=== PATIENT | male | born 1965 | race Caucasian/White ===

== ENCOUNTER 2021-09-19 10:45 | Inpatient (IN) | payer MEDICARE ==
[~2021-09-19] VITALS: Ht 182.9 cm; Wt 79.8 kg
[2021-09-19] MEDS ORDERED: ACETAMINOPHEN 325 MG TABLET PO PRN (12:00)
[2021-09-19] MEDS ORDERED: clonazePAM 0.5 MG TABLET PO PRN (12:00)
[2021-09-19] MEDS ORDERED: MAG HYDROX/AL HYDROX/SIMETH 30 ML UDC PO PRN (12:00)
[2021-09-19] MEDS ORDERED: MAGNESIUM HYDROXIDE 30 ML UDC PO PRN (12:00)
[2021-09-19] MEDS ORDERED: BLOOD SUGAR DIAGNOSTIC 1 EACH STRIP IN ONE (12:00)
--- NOTE | 2021-09-19 12:00 | NUR ---
RN-ADMISSION NOTES ADMITTED 55 Y.O MALE PATIENT FROM [facility]. PATIENT ON 5150 HOLD FOR DTS AND GD. PER HOLD PATIENT IS HEARING VOICES,REFUSING TO EAT AND DRINKS,HE BELIEVES IT IS POISON. PATIENT BECAME AGGRESSIVE TO HIS MOTHER. UPON FACE TO FACE ASSESSMENT PATIENT DID NOT WANT TO DISCUSS OR ANSWER THE COMPUTER ENGINEER QUESTIONS. HE IS AGITATED AND ANGRY, RUMBLING TO SELF.PATIENT IS UNCOOPERATIVE DURING THE ADMISSION PROCESS. REFUSED FULL BODY ASSESSMENT AND REUSED TO SIGN ADMISSION PAPERS. PATIENT ALSO REFUSED ACCU CHECK AND MRSA SWAB. PATIENT IS UNDER THE CARE OF DR. LAKHANI( PSYCHIATRIST) DR. SANCHEZ (CRAB BUTCHER) BOTH MD WAS MADE AWARE OF PT. ADMISSION.PATIENT'S BRANNON BOOKLET AND MEDICATION BOOKLET WAS GIVEN TO THE PATIENT.PAT'S MOTHER QUITA PERRY WAS MADE AWARE OF THE ADMISSION. WILL CONT. MONITORING FOR SAFETY AND BEHAVIOR.
--- NOTE | 2021-09-19 13:17 | NUR ---
RN-CO: DR Rivera was notified and gave admitting orders. He ordered Klonopin 1 mg Q 4 hours PRN for agitation.
--- NOTE | 2021-09-19 13:40 | NUR ---
KRIS Initial Discharge Plan: Patient currently resides at [address] [place] [address]; ([phone]). Pt lives with mother Carol ([phone]). Pt would want to return back home upon discharge. KRIS will work with the MD, family, and treatment team to coordinate appropriate treatment.
--- NOTE | 2021-09-19 13:40 | NUR ---
Clinical Social Work Note: Pt placed on a 5150 hold for GD and danger to others. Pt brought to the hospital due to having hallucinations at home and pt was not taking his medications at home. Pt was losing weight at home and was not eating. Patient currently resides at [address] [place] [address]; ([phone]). Pt lives with mother Carol ([phone]). Pt would want to return back home upon discharge.
--- NOTE | 2021-09-19 13:41 | NUR ---
Social Work Note/Substance Abuse Intervention: Patient was provided with a brief substance abuse intervention and referred to [facility] ([phone]), [facility] ([phone]), and [facility] ([phone]) for smoking marijuana.
[2021-09-19] MEDS: clonazePAM 0.5 MG TABLET PO PRN ×2 (15:14→19:32)
--- NOTE | 2021-09-19 15:20 | NUR ---
RN-NOTES NOTED PATIENT IRRITABLE AND ANGRY,YELLING WHEN APPROACH BY THE STAFF. KLONOPIN 1MG P.O GIVEN PRN ORDER. WILL CONT. MONITORING FOR SAFETY AND BEHAVIOR.
--- NOTE | 2021-09-19 15:31 | NUR ---
Individual Counseling: SW met with pt. at bedside to conduct individual check in. However, pt. was asleep and not awakened via verbal cues. SW will invite pt. to next individual or group counseling session.
[2021-09-19 16:00] VITALS: BP 114/66
--- NOTE | 2021-09-19 16:06 | NUR ---
KRIS Family Contact: SW attempted to contact pt's mother Carol ([phone]) to discuss treatment/discharge planning. However, the number was disconnected. SW attempted to impersonator character to notify [facility] ([phone]) but was unavailable, SW, left a voicemail.
--- NOTE | 2021-09-19 16:20 | NUR ---
RN-NOTES PATIENT LYING IN BED SLEEPING EASILY AROUSED,NO ACUTE DISTRESS NOTED.
[2021-09-19] MEDS ORDERED: DEXTROSE 50%-WATER 50 ML DISP.SYRIN IV PRN (18:30)
[2021-09-19] MEDS ORDERED: INSULIN REGULAR, HUMAN 100 UNIT/ML 3 ML VIAL SQ PRN (18:30)
[2021-09-19] MEDS ORDERED: hydrALAZINE HCL 25 MG TABLET PO PRN (18:30)
--- NOTE | 2021-09-19 19:25 | NUR ---
RN-NOTES PATIENT SLEEPING WITH BREATHING EVEN AND NONLABORED EASILY AROUSED,GUARDED,EASILY IRRITABLE.ALL NEEDS ATTENDED AND ANTICIPATED. WILL CONT. MONITORING FOR SAFETY AND BEHAVIOR. WILL ENDORSE TO INCOMING NURSE FOR CONTINUITY OF CARE AND URINE COLLECTIONS.
[2021-09-19 20:00] VITALS: BP 125/68
--- NOTE | 2021-09-19 20:19 | NUR ---
RN OPENING NOTES: RECEIVED PATIENT AWAKE IN BED, BED IN LOW POSITION, PATIENT IS AMBULATORY, ABLE TO VERBALIZE NEEDS, ON ROOM AIR NO SOB WAS OBSERVED, PATIENT APPEARS COMBATIVE AND YELLING AT NURSES , KLONOPIN 1 MG PRN GIVEN ABLE TO TAKE IT, PATIENT WAS REDIRECTED BACK TO ROOM, KEPT CLEAN AND DRY ALL NEEDS MET WILL CONTINUE TO MONITOR.
[2021-09-19] MEDS: BLOOD SUGAR DIAGNOSTIC 1 EACH STRIP IN SCH (22:00)
--- NOTE | 2021-09-19 22:40 | NUR ---
RN NOTES: [id number]- NO INSULIN GIVEN, OUT OF PARAMETER
[2021-09-19] MEDS: TEMAZEPAM 7.5 MG CAPSULE PO PRN (22:59)
--- NOTE | 2021-09-20 06:38 | NUR ---
RN CLOSING NOTES; PATIENT SLEEP IN BED COMFORTABLY, BED IN LOW POSITION, ON ROOM AIR SATURATING WELL, NO SOB WAS OBSERVED, ON MEDICATION COMPLIANT, AMBULATORY WITH SUPERVISION, PATIENT WAS COMBATIVE, AGGRESSIVE BEHAVIOR AND NEEDS TO BE REDIRECTED BACK TO ROOM, PATIENT KEPT CLEAN AND DRY ALL NEEDS MET ENDORSE TO INCOMING SHIFT
[2021-09-20] MEDS: BLOOD SUGAR DIAGNOSTIC 1 EACH STRIP IN SCH (07:30)
--- NOTE | 2021-09-20 07:45 | NUR ---
Pt. refused for lab draw and refused for accu check. Pt. was irritable and mad.
--- NOTE | 2021-09-20 07:55 | NUR ---
Refused v/s in the morning. Irritable and mad.
[2021-09-20] MEDS: OLANZAPINE 2.5 MG TABLET PO SCH (09:19)
[2021-09-20] MEDS: DIVALPROEX SODIUM 125 MG CAP.SPRINK PO SCH ×2 (09:19→21:00)
--- NOTE | 2021-09-20 09:42 | NUR ---
Dr. Contreras in the unit and made aware that pt. refused lab draw and refused accu check and ordered to do accu check once a day in AM ac breakfast with mild regular insulin sliding scale
[2021-09-20] MEDS ORDERED: INSULIN REGULAR, HUMAN 100 UNIT/ML 3 ML VIAL SQ PRN (10:00)
[2021-09-20] MEDS ORDERED: DEXTROSE 50%-WATER 50 ML DISP.SYRIN IV PRN (10:00)
[2021-09-20] MEDS: clonazePAM 0.5 MG TABLET PO PRN (10:35)
--- NOTE | 2021-09-20 10:35 | NUR ---
Pt. is anxious, agitated, irritable in the hallway and prn of Klonopin given.. Will continue to monitor for safety. Addendum: 09/20/21 at 1044 by ROGERIO VAUGHN RN Pt. refused to take the Klonopin and said he doesn't need it and will continue to monitor.
--- NOTE | 2021-09-20 10:59 | NUR ---
KRIS Family Contact: SW attempted to contact patient's mother Carol ([phone]) who stated that pt lives at home and pt welcomed back home. She reported upon dc she will pick pt up.
--- NOTE | 2021-09-20 15:29 | NUR ---
Pt. refused lab draw again. Pt. is irritable and angry.
--- NOTE | 2021-09-20 19:55 | NUR ---
PATIENT REFUSED VITALS SIGNS DESPITE OF RISKS AND BENEFITS EXPLANATIONS. PATIENT IS UNCOOPERATIVE, UNPREDICTABLE BEHAVIOR, AGITATED AND DOES NOT WANT RIANNA BE BOTHERED.
--- NOTE | 2021-09-20 21:35 | NUR ---
GPS RN NOTE: MEDICATION REFUSAL PATIENT REFUSED DEPAKOTE X 3 ORDERED AT 2100 DESPITE OF RISKS AND BENEFITS EXPLANATIONS, PATIENT GOT AGITATED AND ASKED THE NURSE TO LEAVE HIS ROOM. PATIENT IS UNCOOPERATIVE AND NON COMPLAINT WITH MEDICATIONS AND CARE. WILL CONTINUE TO MONITOR FOR ANY CHANGES.
--- NOTE | 2021-09-20 21:40 | NUR ---
GPS RN NOTE DEPAKOTE WAS OPENED TO OFFER TO THE PATIENT BUT PATIENT KEPT REFUSING IT, DEPAKOTE WAS WASTED PER PROTOCOL.
[2021-09-21] MEDS: BLOOD SUGAR DIAGNOSTIC 1 EACH STRIP IN SCH (07:30)
[2021-09-21] MEDS: OLANZAPINE 2.5 MG TABLET PO SCH (09:00)
[2021-09-21] MEDS: DIVALPROEX SODIUM 125 MG CAP.SPRINK PO SCH ×2 (09:00→20:50)
--- NOTE | 2021-09-21 09:00 | NUR ---
GPS/RN RECEVEID PT RESTING IN TH BED NO ACUTE DISTRESS NOTED. REFUSED VS IN AM. REFUSED TO TAKE MEDICATIONS. AMBULATORY. ANGRY AND PARANOID. ALL NEEDS ATTENDED AND ANTICIPATED. WILL CONTINUE TO MONITOR Q15MIN FOR SAFETY AND BEHAVIOR.
--- NOTE | 2021-09-21 11:09 | NUR ---
GPS/RN MULTIPLE UNSUCCESSFUL ATTEMPTS WERE MADE TO MEDICATE PT FOR 0900.
--- NOTE | 2021-09-21 19:58 | NUR ---
RN-NOTES PATIENT RESTING IN HIS ROOM NO S/S OF ACUTE DISTRESS NOTED. EASILY AGITATED , UNCOOPERTIVE , UNPREDICTABLE ,PARANOID CONFUSED FORGETFUL ,DISHELVED, NEEDY, HYPERVERBAL, DEMANDING BEHAVIOR. FOCUS ON FOOD, COFFEE. ALL NEED ATTENDED AND ANTICIPATED. , ENCOURAGED TO VERBALIZED ANY FEELING OR CONCERN, WILL CONTINUE MONITORING Q15 FOR SAFETY AND BEHAVIOR.
[2021-09-21 20:00] VITALS: BP 107/68
--- NOTE | 2021-09-21 20:00 | NUR ---
RN NOTES: PT. REFUSED VITAL SIGNS, DESPITE EXPLAINING THE IMPORTANCE. PT. STRONGLY REFUSED,WILL CONTINUE TO MONITOR.
[2021-09-21] MEDS: clonazePAM 0.5 MG TABLET PO PRN (20:31)
--- NOTE | 2021-09-21 20:34 | NUR ---
RN NOTES : ANXIETY PT. C/O FEELING ANXIOUS , RESTLESS, SCRAMING YELLING PRN KLONOPIN 1 MG PO GIVEN , WILL CONTINUE TO MONITOR.
--- NOTE | 2021-09-21 20:51 | NUR ---
RN NOTES: PT. REFUSED 2100 SCHEDULE, PO DEPAKOTE 125MG, DESPITE EXPLAINING THE IMPORTANCE. PER PT. THAT,S NOT MY MEDICATIONS , I NEVER TAKE IT,WILL CONTINUE TO MONITOR.
[2021-09-22] MEDS: BLOOD SUGAR DIAGNOSTIC 1 EACH STRIP IN SCH (07:23)
[2021-09-22 08:00] VITALS: BP 115/71
[2021-09-22] MEDS: OLANZAPINE 2.5 MG TABLET PO SCH (08:10)
[2021-09-22] MEDS: DIVALPROEX SODIUM 125 MG CAP.SPRINK PO SCH ×2 (08:10→20:28)
--- NOTE | 2021-09-22 09:00 | NUR ---
GPS/RN RECEIVED PT RESTING IN TH BED NO ACUTE DISTRESS NOTED. REFUSED TO TAKE MEDICATIONS. AMBULATORY. ANGRY AND PARANOID. ALL NEEDS ATTENDED AND ANTICIPATED. WILL CONTINUE TO MONITOR Q15MIN FOR SAFETY AND BEHAVIOR.
[2021-09-22 16:00] VITALS: BP 110/64
[2021-09-22] MEDS: clonazePAM 0.5 MG TABLET PO PRN (19:32)
--- NOTE | 2021-09-22 19:32 | NUR ---
RN NOTES: ANXIETY PT. C/O FEELING ANXIOUS ,PACING IN HALLWAY RESTLESS, SCRAMING YELLING PRN KLONOPIN 1 MG PO GIVEN , WILL CONTINUE TO MONITOR.
[2021-09-22 20:15] VITALS: BP 108/64
--- NOTE | 2021-09-22 20:28 | NUR ---
RN NOTES: PT. REFUSED 2100 SCHEDULE, PO DEPAKOTE 125MG, DESPITE EXPLAINING THE IMPORTANCE. PER PT. THAT,S NOT MY MEDICATIONS , I NEVER TAKE IT, I JUST TOOK KLONOPIN ALREADY THAT"S ALL ,WILL CONTINUE TO MONITOR.
[2021-09-23] MEDS: clonazePAM 0.5 MG TABLET PO PRN ×2 (04:32→21:33)
--- NOTE | 2021-09-23 04:33 | NUR ---
RN NOTES: ANXIETY PT. C/O FEELING ANXIOUS ,PACING IN HALLWAY RESTLESS, SCRAMING YELLING PRN KLONOPIN 1 MG PO GIVEN , WILL CONTINUE TO MONITOR.
[2021-09-23] MEDS: BLOOD SUGAR DIAGNOSTIC 1 EACH STRIP IN SCH (07:30)
[2021-09-23 08:00] VITALS: BP 117/73
[2021-09-23] MEDS: DIVALPROEX SODIUM 125 MG CAP.SPRINK PO SCH ×2 (08:41→21:00)
[2021-09-23] MEDS: OLANZAPINE 2.5 MG TABLET PO SCH (08:41)
--- NOTE | 2021-09-23 09:00 | NUR ---
GPS/RN RECEIVED PT RESTING IN TH BED NO ACUTE DISTRESS NOTED. VSS. REFUSED TO TAKE MEDICATIONS OFFERED X3. AMBULATORY. ANGRY AND PARANOID. ALL NEEDS ATTENDED AND ANTICIPATED. WILL CONTINUE TO MONITOR Q15MIN FOR SAFETY AND BEHAVIOR.
[2021-09-23 16:00] VITALS: BP 102/64
--- NOTE | 2021-09-23 19:20 | NUR ---
GPS RN NOTES RECEIVED PATIENT IN BED AWAKE ALERT AND ORIENTED X1, NO S/SX OF ACUTE DISTRESS NOTED. PATIENT REMAINS IRRITABLE, ANGRY AFFECT, SUSPICIOUS, UNPREDICTABLE, DISORGANIZED, UNCOOPERATIVE. VERBALIZATION OF FEELINGS ENCOURAGED. SAFETY PRECAUTIONS IN PLACE. WILL CONTINUE TO MONITOR Q15MIN ROUNDS FOR SAFETY AND BEHAVIOR.
--- NOTE | 2021-09-23 20:00 | NUR ---
GPS RN NOTES PATIENT REFUSED WEEKLY SKIN ASSESSMENT.
[2021-09-23 20:10] VITALS: BP 112/75
--- NOTE | 2021-09-23 21:28 | NUR ---
GPS RN NOTES: MEDICATION REFUSAL PATIENT REFUSED SCHEDULED DEPAKOTE. OFFERED X3. DESPITE OF RISK/BENEFITS EXPLANATION. PATIENT BECAME AGITATED. PATIENT STATED NO, "I DON'T TAKE DEPAKOTE, I DON'T HAVE SEIZURE".
[2021-09-24] MEDS: BLOOD SUGAR DIAGNOSTIC 1 EACH STRIP IN SCH (07:46)
[2021-09-24 08:00] VITALS: BP 114/67
[2021-09-24] MEDS: DIVALPROEX SODIUM 125 MG CAP.SPRINK PO SCH ×3 (08:35→20:52)
[2021-09-24] MEDS: OLANZAPINE 2.5 MG TABLET PO SCH ×2 (08:35→08:38)
--- NOTE | 2021-09-24 09:00 | NUR ---
RN NOTE- RECEIVED PATIENT IN BED AWAKE ALERT AND ORIENTED X1, NO S/SX OF ACUTE DISTRESS NOTED. PATIENT REMAINS IRRITABLE, ANGRY AFFECT, SUSPICIOUS, UNPREDICTABLE, DISORGANIZED, UNCOOPERATIVE. VERBALIZATION OF FEELINGS ENCOURAGED. SAFETY PRECAUTIONS IN PLACE. WILL CONTINUE TO MONITOR Q15MIN ROUNDS FOR SAFETY AND BEHAVIOR.
--- NOTE | 2021-09-24 21:35 | NUR ---
RN GPS NOTE: PATIENT WAS TALKING NON-TANGENTIAL AND TO HIMSELF WHILE ATTEMPTED TO OFFER HIS SCHEDULED BEDTIME MEDICATIONS. PATIENT REFUSED X3. EDUCATION PROVIDED REGARDING REFUSAL. PATIENT THEN GOT UP AND WAS CAUGHT SITTING DOWN ON STAFF CHAIR. PATIENT WAS MOCKING THIS PIANO AND ORGAN REFINISHER SAYING "SPEAK BETTER MOLDOVAN" WHILE THROWING INSULTS. PATIENT HOWEVER WAS EVENTUALLY REDIRECTED TO THE DAY ROOM.
--- NOTE | 2021-09-24 22:53 | NUR ---
RN GPS NOTE: PATIENT GOT UP FROM BED AT 2350 TALKING IN NON-SENSICAL SPEECH, THEN WAS SINGING REQUESTING TOO MANY THINGS AT THE SAME TIME. PATIENT ASKED FOR HIS PHONE TO BE SEEN WHILE SINGING. STAFF SHOWED WHERE HIS PHONE IS, WHICH WAS SHOWN TO HIM, THEN PATIENT WAS SINGING. PATIENT SEEMED TO BE SATISFIED, THEN WENT BACK TO HIS ROOM.
[2021-09-25] MEDS: BLOOD SUGAR DIAGNOSTIC 1 EACH STRIP IN SCH (07:30)
--- NOTE | 2021-09-25 07:42 | NUR ---
RN NOTE- RECEIVED PATIENT IN BED AWAKE ALERT AND ORIENTED X1, PT LABILE, REFUSING MEDS AND CARE. NO S/SX OF ACUTE DISTRESS NOTED. PATIENT REMAINS IRRITABLE, ANGRY AFFECT, SUSPICIOUS, UNPREDICTABLE, DISORGANIZED, UNCOOPERATIVE. VERBALIZATION OF FEELINGS ENCOURAGED. SAFETY PRECAUTIONS IN PLACE. WILL CONTINUE TO MONITOR Q15MIN ROUNDS FOR SAFETY AND BEHAVIOR.
[2021-09-25 08:00] VITALS: BP 110/59
[2021-09-25] MEDS ORDERED: diphenhydrAMINE HCL 50 MG/ML VIAL IM STA (08:10)
[2021-09-25] MEDS ORDERED: HALOPERIDOL LACTATE INJ 5 MG/ML VIAL IM STA (08:10)
[2021-09-25] MEDS ORDERED: LORAZEPAM INJ 2 MG/ML VIAL IM STA (08:10)
--- NOTE | 2021-09-25 08:13 | NUR ---
RN NOTE- REFUSING MEDS, USING PROFANITY AND RACIAL EPITHETS, POSTURING AND YELLING. PRODUCT SUPPORT SALES REPRESENTATIVE LEAH NOTIFIED. ATIVAN 2 MG, BENADRYL 50 MG AND HALDOL 5 MG ORDERED IM STAT.
[2021-09-25] MEDS: DIVALPROEX SODIUM 125 MG CAP.SPRINK PO SCH ×2 (08:45→21:00)
[2021-09-25] MEDS: OLANZAPINE 2.5 MG TABLET PO SCH (08:45)
[2021-09-25 16:00] VITALS: BP 113/62
--- NOTE | 2021-09-25 19:20 | NUR ---
GPS RN NOTES PATIENT IN HIS ROOM. ALERT AND ORIENTED X1, NO S/SX OF ACUTE DISTRESS NOTED. PATIENT REMAINS IRRITABLE, UNPREDICTABLE, UNCOOPERATIVE, HYPERVERBAL, TALKING TO SELF. VERBALIZATION OF FEELINGS ENCOURAGED. SAFETY PRECAUTIONS IN PLACE. WILL CONTINUE TO MONITOR Q15MIN ROUNDS FOR SAFETY AND BEHAVIOR.
[2021-09-25 19:35] VITALS: BP 111/57
--- NOTE | 2021-09-25 21:30 | NUR ---
GPS RN NOTES: MEDICATION REFUSAL PATIENT REFUSED SCHEDULED DEPAKOTE. OFFERED X3. DESPITE OF RISK/BENEFITS EXPLANATION. PT CONTINUED TO REFUSED.
[2021-09-26] MEDS: BLOOD SUGAR DIAGNOSTIC 1 EACH STRIP IN SCH (07:19)
--- NOTE | 2021-09-26 07:22 | NUR ---
GPS RN NOTES PATIENT REFUSED ACCU CHECK DESPITE EXPLAINING THE IMPORTANCE. WILL CONTINUE TO MONITOR.
[2021-09-26] MEDS: DIVALPROEX SODIUM 125 MG CAP.SPRINK PO SCH ×2 (09:00→21:00)
[2021-09-26] MEDS: OLANZAPINE 2.5 MG TABLET PO SCH (09:00)
--- NOTE | 2021-09-26 09:02 | NUR ---
Court Notification: SW contacted pt's Carol ([phone]) and notified of pt's 7450 hearing and riese hearing for today.
--- NOTE | 2021-09-26 09:09 | NUR ---
Pt. refused to take Zyprexa and Depakote po, offered 3x and explained on the importance and still refusing. Pt. is angry, mad, verbally abusive to staffs and irritable. Will continue to monitor for safety.
--- NOTE | 2021-09-26 10:50 | NUR ---
Pt. is on Riese. Dr. Rivera gave an order Zyprexa 5 mg po and to give Haldol 5 mg IM prn for each refusal of Zyprexa po.
[2021-09-26] MEDS: HALOPERIDOL LACTATE INJ 5 MG/ML VIAL IM PRN (10:57)
[2021-09-26] MEDS: OLANZAPINE 5 MG TABLET PO SCH ×2 (11:06→16:21)
[2021-09-26] MEDS: clonazePAM 0.5 MG TABLET PO PRN ×2 (11:06→16:21)
--- NOTE | 2021-09-26 14:56 | NUR ---
Court Hearing: Patient's court hearing was today and it was upheld for GD.
--- NOTE | 2021-09-26 19:15 | NUR ---
GPS RN NOTES PATIENT IN HIS BED RESTING COMFORTABLY. ALERT AND ORIENTED X1. NO S/SX OF ACUTE DISTRESS NOTED. PATIENT REMAINS IRRITABLE, ANGRY AFFECT, DEMANDING TO STAFF, UNPREDICTABLE, UNCOOPERATIVE, HYPERVERBAL, TALKING TO SELF. SET LIMITS. VERBALIZATION OF FEELINGS ENCOURAGED. SAFETY PRECAUTIONS IN PLACE. WILL CONTINUE TO MONITOR Q15MIN ROUNDS FOR SAFETY AND BEHAVIOR.
[2021-09-26 20:00] VITALS: BP 136/84
--- NOTE | 2021-09-26 21:40 | NUR ---
GPS RN NOTES: MEDICATION REFUSAL PATIENT REFUSED SCHEDULED DEPAKOTE. OFFERED X3. DESPITE OF RISK/BENEFITS EXPLANATION. PT CONTINUED TO REFUSED.
[2021-09-27] MEDS: BLOOD SUGAR DIAGNOSTIC 1 EACH STRIP IN SCH (07:30)
[2021-09-27] MEDS: clonazePAM 0.5 MG TABLET PO PRN ×2 (08:42→16:24)
[2021-09-27] MEDS: DIVALPROEX SODIUM 125 MG CAP.SPRINK PO SCH ×3 (08:42→21:00)
[2021-09-27] MEDS: HALOPERIDOL 5 MG TABLET PO SCH ×2 (08:42→16:22)
--- NOTE | 2021-09-27 09:42 | NUR ---
RN Notes: Received pt. asleep in bed, breathing is even and unlabored. Ate 100% for breakfast, pt. is very argumentative, irritable, loud, verbally abusive, guarded upon approached, demanding and angry. Pt. took the Haldol PO and Klonopin prn and refused the Depakote stating he doesn't have seizure. Explained on the importance and still refusing. Pt. refused for accu check and stating that he is not diabetic and refused v/s check. Encouraged to attend group activity, needs attended and will continue to monitor for safety.
--- NOTE | 2021-09-27 20:31 | NUR ---
RN NOTES: PATIENT IN HIS ROOM. ALERT AND ORIENTED, NO S/SX OF ACUTE DISTRESS NOTED. PATIENT REMAINS IRRITABLE, INTRUSIVE, ANGRY AFFECT, UNPREDICTABLE, UNCOOPERATIVE, HYPERVERBAL, TALKING TO SELF. VERBALIZATION OF FEELINGS ENCOURAGED. SAFETY PRECAUTIONS IN PLACE. WILL CONTINUE TO MONITOR Q15MIN ROUNDS FOR SAFETY AND BEHAVIOR.
[2021-09-27 21:00] VITALS: BP 123/78
--- NOTE | 2021-09-27 21:12 | NUR ---
RN NOTES: MEDICATION REFUSAL PT. REFUSED 2100 SCHEDULE, PO DEPAKOTE 125MG, DESPITE EXPLAINING THE IMPORTANCE. PER PT. THAT,S NOT MY MEDICATIONS , I NEVER TAKE IT ,WILL CONTINUE TO MONITOR.
[2021-09-28] MEDS: BLOOD SUGAR DIAGNOSTIC 1 EACH STRIP IN SCH (07:30)
--- NOTE | 2021-09-28 08:37 | NUR ---
Pt. aggressive, agitated, verbally abusive, intrusive to staffs, hitting the wall with the walker and very angry. Ryland Eisenberg NP made aware and ordered Haldol 5 mg IM. Ativan 2 mg IM and Benadryl 50 mg IM. Addendum: 09/28/21 at 0915 by ROGERIO VAUGHN RN Pt. was screaming, yelling and hitting the window with the phone.
[2021-09-28] MEDS: HALOPERIDOL LACTATE INJ 5 MG/ML VIAL IM PRN ×2 (08:47→18:20)
[2021-09-28] MEDS: HALOPERIDOL 5 MG TABLET PO SCH ×2 (08:49→17:00)
[2021-09-28] MEDS: DIVALPROEX SODIUM 125 MG CAP.SPRINK PO SCH ×2 (08:49→20:58)
[2021-09-28] MEDS ORDERED: LORAZEPAM INJ 2 MG/ML VIAL IM ONE (09:00)
[2021-09-28] MEDS ORDERED: HALOPERIDOL LACTATE INJ 5 MG/ML VIAL IM ONE (09:00)
[2021-09-28] MEDS ORDERED: diphenhydrAMINE HCL 50 MG/ML VIAL IM ONE (09:00)
--- NOTE | 2021-09-28 09:33 | NUR ---
Called the mother Carol at [phone] to notify the incident and left a message to call the unit.
--- NOTE | 2021-09-28 20:00 | NUR ---
RN NOTES: PT. REFUSED VITAL SIGNS TAKEN, DESPITE EXPLAINING THE IMPORTANCE. PT. STRONGLY REFUSED,WILL CONTINUE TO MONITOR.
--- NOTE | 2021-09-28 20:07 | NUR ---
RN NOTES: PATIENT IN HIS ROOM. ALERT AND ORIENTED, NO S/SX OF ACUTE DISTRESS NOTED. PATIENT IRRITABLE, INTRUSIVE, ANGRY AFFECT,NEEDY DEMENDING UNPREDICTABLE, UNCOOPERATIVE, HYPERVERBAL, TALKING TO SELF. VERBALIZATION OF FEELINGS ENCOURAGED. SAFETY PRECAUTIONS IN PLACE. WILL CONTINUE TO MONITOR Q15MIN ROUNDS FOR SAFETY AND BEHAVIOR.
--- NOTE | 2021-09-28 20:59 | NUR ---
RN NOTES: MEDICATION REFUSAL PT. REFUSED 2100 SCHEDULE, PO DEPAKOTE 125MG, DESPITE EXPLAINING THE IMPORTANCE. PER PT. THAT,S NOT MY MEDICATIONS , I NEED TO TAKE IT ,WILL CONTINUE TO MONITOR. Addendum: 09/28/21 at 2100 by NICOLE NIEVES RN RN NOTES: MEDICATION REFUSAL PT. REFUSED 2100 SCHEDULE, PO DEPAKOTE 125MG, DESPITE EXPLAINING THE IMPORTANCE. PER PT. THAT,S NOT MY MEDICATIONS , I NEVER TAKE IT ,WILL CONTINUE TO MONITOR.
--- NOTE | 2021-09-28 22:40 | NUR ---
GPS RN NOTE, PATIENT HAS A COMPLAINT OF GENERALIZED PAIN AT A 6 OUT OF 10 ON THE PAIN SCALE REQUESTING SOMETHING STRONGER THAN TYLENOL AT THIS TIME. PATIENT REFUSES TO HAVE VITAL SINGS TAKEN. PAGED [employer] AND INFORMED DANIE LUIS NP OF MY FINDINGS. DANIE LUIS NP ORDERED NAPROXEN 250MG PO BID PRN FOR MODERATE PAIN. ALL ORDERS NOTED AND CARRIED OUT WILL CONTINUE TO MONITOR THIS PATIENT WITH THE HELP OF STAFF.
[2021-09-28] MEDS ORDERED: NAPROXEN 250 MG TABLET PO PRN (23:00)
[2021-09-29] MEDS: BLOOD SUGAR DIAGNOSTIC 1 EACH STRIP IN SCH (07:30)
[2021-09-29] MEDS: DIVALPROEX SODIUM 125 MG CAP.SPRINK PO SCH ×2 (09:00→21:00)
[2021-09-29] MEDS: HALOPERIDOL 5 MG TABLET PO SCH ×2 (09:00→18:14)
--- NOTE | 2021-09-29 09:30 | NUR ---
GPS/RN pt refused vs taken, accucheck and po meds. haldol 5mg im given as ordered
[2021-09-29] MEDS: HALOPERIDOL LACTATE INJ 5 MG/ML VIAL IM PRN (09:44)
[2021-09-29] MEDS ORDERED: HALOPERIDOL DECANOATE IM 100 MG/ML AMPUL IM ONE (14:00)
[2021-09-29] MEDS: clonazePAM 0.5 MG TABLET PO PRN (17:32)
--- NOTE | 2021-09-29 19:27 | NUR ---
GPS RN NOTE, RECEIVED PATIENT AWAKE AND IN BED, NO S/S OR COMPLAINTS OF PAIN AT THIS TIME. PATIENT IS DISPLAYING NO S/S OF APPARENT DISTRESS AT THIS TIME. PATIENT BREATHING IS UNLABORED WITH EQUAL RISE AND FALL OF THE CHEST. PATIENT IS ALERT AND ORIENTED X 2 ON ROOM AIR. PATIENT IS SELECTIVE WITH MEDICATIONS, BUT HAS A RIESE ORDER, YELLING AT TIMES, VERBALLY ABUSIVE, AND UNCOOPERATIVE. PATIENT DENIES SUICIDAL AND HOMICIDAL IDEATIONS AT THIS TIME. PATIENT ASSISTED WITH TURNING AND REPOSITIONING Q2HR AND PRN FOR COMFORT AND CIRCULATION. PATIENT HAS NO NEEDS AT THIS TIME. PATIENT EDUCATED ON THE USE OF THE CALL ZHANG. PATIENT BED SIDE RAILS UP X 2 FOR SAFETY. PATIENT BED IS LOCKED, LOW, WITH BED ALARM ON. WILL CONTINUE TO MONITOR THIS PATIENT Q15 MINUTES WITH THE HELP OF STAFF TO MAINTAIN SAFETY.
--- NOTE | 2021-09-29 21:30 | NUR ---
GPS RN NOTE, PATIENT REFUSED DIVALPROEX SODIUM SPRINKLE 125MG PO Q12. OFFERED THREE TIMES AND STILL PATIENT REFUSED STATING, " NO I DON'T HAVE SEIZURES SO I DON'T NEED THAT MEDICATION, SO GET THE FUCK OUT OF HEAR ". EDUCATE PATIENT ON THE RISKS AND BENEFITS OF TAKING AND REFUSING DIVALPROEX SODIUM SPRINKLE. WILL CONTINUE TO MONITOR THIS PATIENT WITH THE HELP OF STAFF.
[2021-09-30] MEDS: BLOOD SUGAR DIAGNOSTIC 1 EACH STRIP IN SCH (06:52)
--- NOTE | 2021-09-30 06:52 | NUR ---
GPS RN NOTE, PATIENT REFUSED TO HAVE AN ACCU CHECK PERFORMED. OFFERED THREE TIMES AND STILL PATIENT REFUSED STATING, " I'M NOT DIABETIC ". EDUCATE PATIENT ON THE RISKS AND BENEFITS OF DOING AND REFUSING ACCU CHECKS. WILL CONTINUE TO MONITOR THIS PATIENT WITH THE HELP OF STAFF.
--- NOTE | 2021-09-30 08:00 | NUR ---
GPS/RN RECEIVED PT RESTING IN TH BED NO ACUTE DISTRESS NOTED. VSS. TOOK HALDOL PO IN AM. AMBULATORY. ANGRY AND PARANOID. ALL NEEDS ATTENDED AND ANTICIPATED. WILL CONTINUE TO MONITOR Q15MIN FOR SAFETY AND BEHAVIOR.
[2021-09-30] MEDS: DIVALPROEX SODIUM 125 MG CAP.SPRINK PO SCH ×2 (08:29→21:00)
[2021-09-30] MEDS: HALOPERIDOL 5 MG TABLET PO SCH ×2 (10:27→17:20)
--- NOTE | 2021-09-30 19:20 | NUR ---
GPS RN NOTES RECEIVED PATIENT IN HIS ROOM. ALERT AND ORIENTED X1, NO S/SX OF ACUTE DISTRESS NOTED. PATIENT REMAINS IRRITABLE, EASILY AGITATED, UNPREDICTABLE, UNCOOPERATIVE, TALKING TO SELF. VERBALIZATION OF FEELINGS ENCOURAGED. SAFETY PRECAUTIONS IN PLACE. WILL CONTINUE TO MONITOR Q15MIN ROUNDS FOR SAFETY AND BEHAVIOR.
[2021-09-30] MEDS: clonazePAM 0.5 MG TABLET PO PRN (19:47)
--- NOTE | 2021-09-30 21:17 | NUR ---
GPS RN NOTES PATIENT REFUSED TO TAKE HIS SCHEDULED DEPAKOTE FOR TONIGHT. DESPITE EXPLAINING THE IMPORTANCE. PATIENT CONTINUED TO REFUSED. WILL CONTINUE TO MONITOR.
[2021-10-01] MEDS: BLOOD SUGAR DIAGNOSTIC 1 EACH STRIP IN SCH (07:30)
--- NOTE | 2021-10-01 07:30 | NUR ---
PT RECEIVED RESTING COMFORTABLY IN BED. NO S/S OR C/O PAIN OR DISTRESS NOTED. SIDE RAILS UP X2. WILL CONTINUE PLAN OF CARE.
[2021-10-01 08:00] VITALS: BP 109/67
[2021-10-01] MEDS: DIVALPROEX SODIUM 125 MG CAP.SPRINK PO SCH ×2 (09:00→21:00)
[2021-10-01] MEDS: HALOPERIDOL 5 MG TABLET PO SCH ×2 (09:20→16:56)
[2021-10-01] MEDS: clonazePAM 0.5 MG TABLET PO PRN ×2 (12:54→16:57)
[2021-10-01 16:00] VITALS: BP 106/76
[2021-10-01 20:53] VITALS: BP 114/51
[2021-10-02] MEDS: BLOOD SUGAR DIAGNOSTIC 1 EACH STRIP IN SCH (07:23)
[2021-10-02] MEDS: clonazePAM 0.5 MG TABLET PO PRN ×2 (07:47→23:11)
--- NOTE | 2021-10-02 07:47 | NUR ---
RN NOTE- ANXIOUS. REQUESTED RX. KLONOPIN 1 MG ADMINISTERED
[2021-10-02 08:00] VITALS: BP 100/67
[2021-10-02] MEDS: DIVALPROEX SODIUM 125 MG CAP.SPRINK PO SCH ×2 (09:00→21:00)
[2021-10-02] MEDS: HALOPERIDOL 5 MG TABLET PO SCH ×2 (09:03→16:24)
--- NOTE | 2021-10-02 19:20 | NUR ---
GPS RN NOTES PATIENT IN HIS ROOM. ALERT AND ORIENTED X1, NO S/SX OF ACUTE DISTRESS NOTED. PATIENT REMAINS LABILE, GETS EASILY IRRITABLE DENNISE WHEN HIS NEEDS ARE NOT MET, FOCUS ON DISCHARGE, UNCOOPERATIVE AND TALKING TO SELF. VERBALIZATION OF FEELINGS ENCOURAGED. SAFETY PRECAUTIONS IN PLACE. WILL CONTINUE TO MONITOR Q15MIN ROUNDS FOR SAFETY AND BEHAVIOR.
--- NOTE | 2021-10-02 21:17 | NUR ---
GPS RN NOTES PATIENT REFUSED TO TAKE HIS SCHEDULED DEPAKOTE FOR TONIGHT. DESPITE EXPLAINING THE IMPORTANCE. PATIENT CONTINUED TO REFUSED. WILL CONTINUE TO MONITOR.
[2021-10-03] MEDS: BLOOD SUGAR DIAGNOSTIC 1 EACH STRIP IN SCH (07:30)
[2021-10-03] MEDS: DIVALPROEX SODIUM 125 MG CAP.SPRINK PO SCH ×3 (08:18→21:02)
[2021-10-03] MEDS: clonazePAM 0.5 MG TABLET PO PRN ×3 (08:18→21:03)
[2021-10-03] MEDS: HALOPERIDOL 5 MG TABLET PO SCH ×3 (08:18→16:40)
--- NOTE | 2021-10-03 08:18 | NUR ---
RN NOTE: PATIENT GETTING VERBALLY ABUSIVE, YELLING AT STAFF, ANXIOUS. KLONOPIN 1 MG PO PRN GIVEN , PATIENT REFUSED VS, REFUSED BS CHECK,LABS . WILL CONTINUE MONITORING FOR SAFETY AND BEHAVIOR Q 15 MIN.
--- NOTE | 2021-10-03 10:38 | NUR ---
GPS RN NOTE: DR NEWTNO VERBAL ORDER PATIENT DIET ADD DOUBLE PORTION. ORDER PLACED AND CARED OUT.
--- NOTE | 2021-10-03 16:40 | NUR ---
RN NOTE: PATIENT GETTING AGITATED KLONOPIN 1 MG PO PRN GIVEN , WILL CONTINUE MONITORING FOR SAFETY AND BEHAVIOR Q 15 MIN.
--- NOTE | 2021-10-03 21:00 | NUR ---
patient refused Depakote at 2100
[2021-10-03] MEDS: TEMAZEPAM 7.5 MG CAPSULE PO PRN (21:03)
[2021-10-04] MEDS: BLOOD SUGAR DIAGNOSTIC 1 EACH STRIP IN SCH (07:30)
--- NOTE | 2021-10-04 07:55 | NUR ---
Pt. is highly agitated, aggressive, screaming, yelling, verbally abusive, threatening staffs and calling bad words towards the pt. Ryland Eisenberg DIRECTOR OF SALES AND MARKETING made aware and ordered Ativan 2 mg IM. Benadryl 50 mg IM and Haldol 1 mg IM x1 and said to Hold Haldol po in the morning.
[2021-10-04] MEDS ORDERED: diphenhydrAMINE HCL 50 MG/ML VIAL IM ONE (08:00)
[2021-10-04] MEDS ORDERED: HALOPERIDOL DECANOATE IM 100 MG/ML AMPUL IM ONE (08:00)
[2021-10-04] MEDS ORDERED: LORAZEPAM INJ 2 MG/ML VIAL IM ONE (08:00)
[2021-10-04] MEDS ORDERED: HALOPERIDOL LACTATE INJ 5 MG/ML VIAL IM ONE (08:00)
--- NOTE | 2021-10-04 08:15 | NUR ---
RN-NOTES PATIENT VERBALIZED THAT HE DOESN'T WANT HER MOTHER TO KNOW EVERYTHING ABOUT HIM.TUBE TEST TECHNICIAN OFFERED TO SIGN NONDISCLOSURE PAPERS BUT PATIENT REFUSED TO SIGN. CHARGE NURSE AWARE.
[2021-10-04] MEDS: HALOPERIDOL 5 MG TABLET PO SCH ×3 (09:00→17:17)
[2021-10-04] MEDS: DIVALPROEX SODIUM 125 MG CAP.SPRINK PO SCH ×2 (09:00→20:41)
--- NOTE | 2021-10-04 14:12 | NUR ---
RN-NOTES HALDOL 5MG P.O HELD, PATIENT IS TOO SEDATED,WITH BREATHING EVEN AND NONLABORED, NO ACUTE DISTRESS NOTED.JOSE CARLOS LYNN MADE AWARE.
--- NOTE | 2021-10-04 16:53 | NUR ---
RN-NOTES PATIENT LAYING IN BED AWAKE,ALERT X3,GUARDED,NO ACUTE DISTRESS NOTED. NOTED PATIENT WITH AGGRESSIVE ,UNCOOPERATIVE, SPITTING AT THE STAFF ,VERBALLY ABUSIVE USING FOUL LANGUAGES, AND DEMANDING BEHAVIOR. IM PRN MEDICATIONS GIVEN.ALL NEEDS ATTENDED AND ANTICIPATED. WILL CONT. MONITORING FOR SAFETY AND BEHAVIOR. WILL ENDORSE TO INCOMING SHIFT FOR CONTINUITY OF CARE.
--- NOTE | 2021-10-04 19:57 | NUR ---
RN NOTES: PATIENT IN HIS ROOM. ALERT AND ORIENTED X2 , NO S/SX OF ACUTE DISTRESS NOTED. PATIENT IRRITABLE, INTRUSIVE, ANGRY AFFECT,NEEDY DEMENDING UNPREDICTABLE, UNCOOPERATIVE, HYPERVERBAL, TALKING TO SELF. VERBALIZATION OF FEELINGS ENCOURAGED. SAFETY PRECAUTIONS IN PLACE. WILL CONTINUE TO MONITOR Q15MIN ROUNDS FOR SAFETY AND BEHAVIOR.
--- NOTE | 2021-10-04 20:19 | NUR ---
RN NOTES: PT. REFUSED VITAL SIGNS TAKEN, DESPITE EXPLAINING THE IMPORTANCE. PT. STRONGLY REFUSED .
[2021-10-05] MEDS: BLOOD SUGAR DIAGNOSTIC 1 EACH STRIP IN SCH (07:30)
[2021-10-05] MEDS: DIVALPROEX SODIUM 125 MG CAP.SPRINK PO SCH ×2 (09:00→20:05)
[2021-10-05] MEDS: HALOPERIDOL 5 MG TABLET PO SCH ×3 (09:35→16:09)
[2021-10-05] MEDS: OLANZAPINE ZYDIS 5 MG TAB.RAPDIS PO SCH (17:00)
--- NOTE | 2021-10-05 17:30 | NUR ---
RN-NOTES PATIENT LYING IN BED AWAKE,ALERT X3. NOTED PATIENT WITH EASILY,ANGRY AND VERBALLY ABUSIVE TO THE STAFF, UNCOOPERATIVE ,ARGUMENTATIVE AND DEMANDING BEHAVIOR.PATIENT IS ACCUSATIVE CLAIMING STAFF ARE STUPID AND ABUSING HIM BY GIVING SHOT. EXPLAINED THAT HE IS RIESE AND IM MEDICATIONS IS GIVEN IF REFUSING HALDOL 5MG P.O. SELECTIVE WITH MEDICATIONS,REFUSED DEPAKOTE IN AM AND ZYPREXA 5MG P.O AT 1700 .ALL NEEDS ATTENDED AND ANTICIPATED. WILL CONT. MONITORING FOR SAFETY AND BEHAVIOR. WILL ENDORSE TO INCOMING NURSE FOR CONTINUITY OF CARE.
[2021-10-05] MEDS: clonazePAM 0.5 MG TABLET PO PRN (19:15)
--- NOTE | 2021-10-05 19:16 | NUR ---
RN NOTES: ANXIETY PT. C/O FEELING ANXIOUS ,PACING IN HALLWAY RESTLESS, SCRAMING YELLING PRN KLONOPIN 1 MG PO GIVEN , WILL CONTINUE TO MONITOR.
--- NOTE | 2021-10-05 19:36 | NUR ---
RN NOTES: PATIENT IN HIS ROOM. ALERT AND ORIENTED X2 . PATIENT SCREAMING YELLING, PARANOID IRRITABLE, INTRUSIVE, ANGRY AFFECT,NEEDY DEMENDING UNPREDICTABLE, UNCOOPERATIVE, HYPERVERBAL, TALKING TO SELF. VERBALIZATION OF FEELINGS ENCOURAGED. SAFETY PRECAUTIONS IN PLACE. WILL CONTINUE TO MONITOR Q15MIN ROUNDS FOR SAFETY AND BEHAVIOR.
--- NOTE | 2021-10-05 19:59 | NUR ---
RN NOTES: PT. REFUSED VITAL SIGNS TAKEN, DESPITE EXPLAINING THE IMPORTANCE. PT. STRONGLY REFUSED .PT. BEHAVIOR UNCOOERTIVE ,PARANOID ,VERBALLY ABUSIVE TO THE STAFF, ALL NEEDS ATTENDED AND ANTICIPATED ,WILL CONTINUITY WITH CARE
--- NOTE | 2021-10-05 20:06 | NUR ---
RN NOTES: MEDICATION REFUSAL PT. REFUSED 2100 SCHEDULE, PO DEPAKOTE 125MG, DESPITE EXPLAINING THE IMPORTANCE. PER PT. THAT , I NEVER TAKE IT , WILL CONTINUE TO MONITOR.
[2021-10-06] MEDS: BLOOD SUGAR DIAGNOSTIC 1 EACH STRIP IN SCH (07:30)
[2021-10-06] MEDS: DIVALPROEX SODIUM 125 MG CAP.SPRINK PO SCH ×2 (09:00→20:27)
[2021-10-06] MEDS: HALOPERIDOL 5 MG TABLET PO SCH ×3 (09:57→17:21)
[2021-10-06] MEDS: OLANZAPINE ZYDIS 5 MG TAB.RAPDIS PO SCH ×2 (09:57→17:21)
--- NOTE | 2021-10-06 17:57 | NUR ---
RN-NOTES PATIENT LAYING IN BED AWAKE,ALERT X3. NOTED PATIENT WITH EASILY,ANGRY AND VERBALLY ABUSIVE TO THE STAFF, UNCOOPERATIVE AT TIMES ,ARGUMENTATIVE AND DEMANDING BEHAVIOR. SELECTIVE WITH MEDICATIONS,REFUSED DEPAKOTE IN AM .ALL NEEDS ATTENDED AND ANTICIPATED. WILL CONT. MONITORING FOR SAFETY AND BEHAVIOR. WILL ENDORSE TO INCOMING NURSE FOR CONTINUITY OF CARE.
--- NOTE | 2021-10-06 20:27 | NUR ---
RN NOTES: MEDICATION REFUSAL PT. REFUSED 2100 SCHEDULE, PO DEPAKOTE 125MG, DESPITE EXPLAINING THE IMPORTANCE. PER PT. THAT MEDICATIONS I DONT TAKE IT .
[2021-10-07] MEDS: BLOOD SUGAR DIAGNOSTIC 1 EACH STRIP IN SCH (07:30)
--- NOTE | 2021-10-07 08:00 | NUR ---
GPS/RN RECEIVED PT RESTING IN THE BED NO ACUTE DISTRESS NOTED. VSS. TOOK HALDOL AND ZYPREXA PO IN AM. AMBULATORY. ANGRY AND PARANOID. ALL NEEDS ATTENDED AND ANTICIPATED. WILL CONTINUE TO MONITOR Q15MIN FOR SAFETY AND BEHAVIOR.
[2021-10-07] MEDS: DIVALPROEX SODIUM 125 MG CAP.SPRINK PO SCH ×2 (08:39→21:00)
[2021-10-07] MEDS: OLANZAPINE ZYDIS 5 MG TAB.RAPDIS PO SCH ×2 (08:41→16:58)
[2021-10-07] MEDS: HALOPERIDOL 5 MG TABLET PO SCH ×2 (08:41→16:58)
--- NOTE | 2021-10-08 01:03 | NUR ---
Patient refused the Depakote at night time. and prn medicine.
[2021-10-08] MEDS: BLOOD SUGAR DIAGNOSTIC 1 EACH STRIP IN SCH (07:30)
[2021-10-08] MEDS: OLANZAPINE ZYDIS 5 MG TAB.RAPDIS PO SCH ×2 (08:59→16:25)
[2021-10-08] MEDS: HALOPERIDOL 5 MG TABLET PO SCH ×2 (09:00→16:25)
[2021-10-08] MEDS: DIVALPROEX SODIUM 125 MG CAP.SPRINK PO SCH ×2 (09:00→21:00)
[2021-10-08] MEDS: clonazePAM 0.5 MG TABLET PO PRN (10:39)
--- NOTE | 2021-10-08 10:40 | NUR ---
RN NOTES: ANXIETY PT. YELLING, VERBALLY ABUSIVE, ANXIOUS ,PACING IN HALLWAY RESTLESS, PRN KLONOPIN 1 MG PO GIVEN , WILL CONTINUE TO MONITOR
--- NOTE | 2021-10-08 15:24 | NUR ---
Individual Counseling: SW met with pt. to facilitate individual counseling. Pt. is irritable and refused to participate in therapeutic milliue. SW used active listening and encouraged verbal expression of feelings.
[2021-10-08 16:00] VITALS: BP 105/59
--- NOTE | 2021-10-08 19:15 | NUR ---
GPS RN NOTES RECEIVED PATIENT IN HIS ROOM. ALERT AND ORIENTED X1, NO S/SX OF ACUTE DISTRESS NOTED. PATIENT REMAINS IRRITABLE, ARGUMENTATIVE, UNCOOPERATIVE, LOUD, DEMANDING, LABILE MOOD. VERBALIZATION OF FEELINGS ENCOURAGED. SAFETY PRECAUTIONS IN PLACE. WILL CONTINUE TO MONITOR Q15MIN ROUNDS FOR SAFETY AND BEHAVIOR.
[2021-10-08 19:37] VITALS: BP 101/62
--- NOTE | 2021-10-08 21:17 | NUR ---
GPS RN NOTES PATIENT REFUSED TO TAKE HIS SCHEDULED DEPAKOTE FOR TONIGHT. DESPITE EXPLAINING THE IMPORTANCE. PATIENT CONTINUED TO REFUSE. WILL CONTINUE TO MONITOR.
[2021-10-09] MEDS: BLOOD SUGAR DIAGNOSTIC 1 EACH STRIP IN SCH ×2 (07:30→21:55)
--- NOTE | 2021-10-09 07:30 | NUR ---
RN OPENING NOTE- RECEIVED PATIENT IN HIS ROOM. ALERT AND ORIENTED X3, NO S/SX OF ACUTE DISTRESS NOTED. PATIENT REMAINS IRRITABLE AT TIMES THOUGH BETTER, VERBALIZATION OF FEELINGS ENCOURAGED. SAFETY PRECAUTIONS IN PLACE. WILL CONTINUE TO MONITOR Q15MIN ROUNDS FOR SAFETY AND BEHAVIOR.
[2021-10-09 08:00] VITALS: BP 108/62
[2021-10-09] MEDS: HALOPERIDOL 5 MG TABLET PO SCH ×2 (08:14→16:14)
[2021-10-09] MEDS: DIVALPROEX SODIUM 125 MG CAP.SPRINK PO SCH ×2 (08:17→21:00)
[2021-10-09] MEDS: OLANZAPINE ZYDIS 5 MG TAB.RAPDIS PO SCH ×2 (08:20→16:14)
--- NOTE | 2021-10-09 08:25 | NUR ---
Court Hearing: Patient's court hearing for [id number] was today and it was upheld for GD.
--- NOTE | 2021-10-09 11:03 | NUR ---
Court Notification: SW left a voicemail for mother Carol ([phone]) for the 30 day hold.
[2021-10-09 16:00] VITALS: BP 115/55
[2021-10-09 20:21] VITALS: BP 123/70
[2021-10-10 08:00] VITALS: BP 105/67
--- NOTE | 2021-10-10 08:11 | NUR ---
REFUSED AM BGL.
[2021-10-10] MEDS: BLOOD SUGAR DIAGNOSTIC 1 EACH STRIP IN SCH (08:30)
[2021-10-10] MEDS: DIVALPROEX SODIUM 125 MG CAP.SPRINK PO SCH ×2 (08:39→08:49)
[2021-10-10] MEDS: HALOPERIDOL 5 MG TABLET PO SCH (08:39)
[2021-10-10] MEDS: OLANZAPINE ZYDIS 5 MG TAB.RAPDIS PO SCH (08:39)
--- NOTE | 2021-10-10 08:53 | NUR ---
KRIS Coordination of Care: Patient was referred to for intake evaluation (Psychiatry) at [facility] located at [address] [place], [place] [id number]; ([phone]) on October 16 at 11:30AM, scheduled by officer of the day.
--- NOTE | 2021-10-10 08:59 | NUR ---
KRIS Family Contact: KRIS notified patient's mother Carol ([phone]) that pt will discharge today back home. She is aware.
--- NOTE | 2021-10-10 09:01 | NUR ---
SW Discharge Note: Patient will return back home located at [address] [place] [address]; ([phone]). Please provide taxi transportation at 2PM. Pts mother Carol ([phone]) is aware. Pt is happy to be going back home. Pt is alert and oriented x3. Patient denies suicidal or homicidal ideation. Pt denies visual/auditory hallucinations. Patient will follow up with (Non Destructive Testing Inspector) Dr. Zuñiga located at [address] [address]; ([phone]). Patient was referred to for intake evaluation (Psychiatry) at [facility] located at [address] [place] [id number]; ([phone]) on October 16 at 11:30AM VIA TELEHEALTH. Patient presents with euthymic mood and congruent affect.
--- NOTE | 2021-10-10 10:15 | NUR ---
RN-CO: PATIENT WAS SEEN AND EXAMINED BY KIRK SHEPARD AND ORDERED TO DISCONTINUE HOLD AND DISCHARGE PATIENT HOME. NOTED AND CARRIED OUT.
--- NOTE | 2021-10-10 14:36 | NUR ---
refused discharge photos,anxious to leave.denies suicidal,homicidal ideations.awaiting taxi pick-up.
--- NOTE | 2021-10-10 15:15 | NUR ---
MADE READY FOR DISCHARGE,BELONGINGS TOGETHER.ALL PAPERS SIGNED.TAKEN VIA TAXI TO STAY WITH MOTHER.ALL BELONGINGS WITH PT.
== END 2021-10-10 15:15 | disposition home or self-care (01) | DRG 885 ==
LOC: GPS 11:27
PROVIDERS: ADMIT Nurse Practitioner Psychiatric/Mental Health; ATTEND Internal Medicine
DX: F20.0 Paranoid schizophrenia (principal); F41.9 Anxiety disorder, unspecified; F39 Unspecified mood [affective] disorder; E11.9 Type 2 diabetes mellitus without complications; F15.10 Other stimulant abuse, uncomplicated
CPT/HCPCS: 82962-TC; J1200; J1630; J1631; J1815; J2060